=== PATIENT | male | born 1985 | race Caucasian/White ===

== ENCOUNTER 2017-09-24 21:20 | Emergency (ER) | payer BC ==
[~2017-09-24] VITALS: Ht 170.2 cm; Wt 74.8 kg
--- NOTE | 2017-09-24 22:15 | NUR ---
Patient ambulated to ER in crutches, reports may have sprained R. ankle while playing soccer, reports pain 2/10. No other complaints.
--- NOTE | 2017-09-24 22:40 | NUR ---
Dr. Davis at bedside for MSE.
[2017-09-24] MEDS ORDERED: HYDROCODONE/APAP 5-325MG TABLET PO ONE (22:45)
[2017-09-24] MEDS ORDERED: HYDROCODONE/APAP 5-325MG TABLET ONE (22:58)
--- NOTE | 2017-09-24 23:19 | NUR ---
Patient discharged to home in stable conditon. Written and verbal after care instructions given. Patient verbalizes understanding of instructions. Patient ambulated out of ER with crutches, splint applied, provided patient with CD, VSS, no acute signs of distress, all belongings taken, to be driven by mother via private vehicle.
[2017-09-24 23:24] VITALS: BP 137/74
== END 2017-09-24 23:15 | disposition home or self-care (01) ==
LOC: ER 21:21
DX: S92.351A Displaced fracture of fifth metatarsal bone, right foot, initial encounter for closed fracture (principal); X50.1XXA Overexertion from prolonged static or awkward postures, initial encounter; Y93.66 Activity, soccer; Y92.89 Other specified places as the place of occurrence of the external cause; Y99.8 Other external cause status
CPT/HCPCS: 73630; A4663